=== PATIENT | female | born 1990 | race Caucasian/White ===

== ENCOUNTER → 2016-09-18 | Outpatient (REF) | payer OTHER ==
[~2016-09-18] MED LIST: PERC5TAB6 PO; VITAPRTA PO
== END ==
LOC: M LAB REF 14:43
PROVIDERS: ATTEND Advanced Practice Midwife
DX: B37.3 Candidiasis of vulva and vagina (principal)

== ENCOUNTER → 2016-11-17 | Outpatient (CLI) | payer OTHER ==
[2016-11-17 13:23] LABS: MEAN CORPUSCULAR HEMOGLOBIN 30.5 pg (27.0-33.0); MEAN CORPUSCULAR HGB CONC 32.1 g/dl (32.0-36.5); WHITE BLOOD COUNT 10.8 K/mm3 (4.0-10.0)
== END ==
LOC: M WUC 09:28
PROVIDERS: ATTEND Obstetrics & Gynecology
DX: Z36 Encounter for antenatal screening of mother (principal)

== ENCOUNTER → 2017-01-12 | Outpatient (REF) | payer OTHER ==
[~2017-01-12] MED LIST changes: +FERR325T3 PO
== END ==
LOC: M LAB REF 16:33
PROVIDERS: ATTEND Obstetrics & Gynecology
DX: Z36 Encounter for antenatal screening of mother (principal)

== ENCOUNTER 2017-01-21 15:52 | Inpatient (IN) | payer OTHER ==
[~2017-01-21] VITALS: Ht 154.9 cm; Wt 90.0 kg
[2017-01-21] VITALS (28 sets, daily range): BP systolic 89–149; BP diastolic 59–97
[~2017-01-21 15:52] MED LIST changes: -ACET50TA PO; -FERR325T3 PO; -IBUP-1114 PO
[2017-01-21] MEDS ORDERED: FERR325T3 PO (16:03)
[2017-01-21] MEDS ORDERED: LACTATED RINGER'S 1000 ML IV ONE (17:15)
--- NOTE | 2017-01-21 17:37 | HPEPDOC ---
Obstetrical History & Physical General Date of Admission Jan 21, 2017 at 16:52 History of Present Illness Patient is a 26 year old female who is a at 37.6 weeks gestation with an MADDIE of 02/05/17 based off her 1st trimester ultrasound and consistent with her LMP. She initiated care in her 1st trimester at [facility]. Her has been complicated with 1st and 2nd trimester vaginal bleeding. She presented to the office 2 days ago with complaints of itching on her hands and feet that got worse at night. No visual rash noted on exam. Labs obtained for cholestasis. Her liver enzymes were double and triple the normal limit. Bile acid is still pending at this time. She was sent over from the office for evaluation to rule out atypical preeclampsia, HELLP, and cholestasis. Patient reports decreased movement, but she is still getting 10 movements in 2 hours. Denies vaginal bleeding or leaking of fluid. When patient was placed on the EFM it was noted that the FHR was tachycardic 180-200 bpm. Chief Complaint: Contractions, term, Other (elevated liver enzymes: cholestasis ) Information Provided By: Patient Age: 26 : 4 Term: 1 Abortions: 2 Livin Care Care: Good Care Dating Final EDC: Feb 05, 2017 Final EDC by: 1st trimester (US) LMP: Jun 12, 2016 EGA at Admission: 37.6 Antepartum Course Height (inches): 61 Pre- weight (lbs.): 195 Admission Weight (lbs.): 206 Change in Weight (lbs.): 11 Past Medical History Past Obstetrical History #1: Past Obstetrical History: Multigravida Gestation: 38 Type of Delivery: Spontaneous Vaginal Del. (09/2012) Sex of : Male Complications: No (7 lbs. 11 oz. ) Past Obstetrical History #2: Gestation: 16 Type of Delivery: Spontaneous Vaginal Del. (Vaginal delivery: incompetent cervix ) Complications: Yes PACKING CHECKER History: Ectopic (2014), Other Past Medical History Medical History non contributory Surgical History: Other (salpingectomy from a ruptured ectopic) Family History Significant Family History: No pertinent family hx Social History Marital Status: Family situation: Spouse/partner home Psychosocial History: No pertinent psych hx * Smoker: non-smoker Alcohol: Denies Drugs: denies Abuse Violence Screening Have you been hit/kicked/slapp: No Have you been sexually assault: No Allergies Coded Allergies: No Known Allergies (Unverified , 06/10/15) Medications Scheduled Ferrous Sulfate (Ferrous Sulfate) 325 Mg Tab, 325 MG PO DAILY Multivit/Min/Pren/Fol Ac/Iron ( Rx) 1 Tab Tab, 1 TAB PO DAILY Physical Examination Physical Examination GENERAL: Alert and oriented times three. BREAST: . ABDOMEN: Gravid and non-tender to touch. FETUS: Is vertex (VTX) by sterile vaginal examination (SVE), fetus is vertex ( VTX) by Kt. HEART RATE: Regular rate and rhythm. LUNGS: Clear to auscultation (CTA). EXTREMITIES: No edema. No clonus. Deep tendon reflexes (DTRs) + 2. Laboratory Data [facility] Laboratory Tests 2 01/21/17 16:40: Item Value Date Time Sodium Level 137 MEQ/L 01/21/17 1507 Potassium Level 4.0 MEQ/L 01/21/17 1507 Chloride Level 104 MEQ/L 01/21/17 1507 Carbon Dioxide Level 21 MEQ/L 01/21/17 1507 Anion Gap 12 MEQ/L 01/21/17 1507 Blood Urea Nitrogen 7 MG/DL 01/21/17 1507 Creatinine 0.80 MG/DL 01/21/17 1507 Glomerular Filtration Rate > 60.0 01/21/17 1507 Fasting Glucose 113 MG/DL H 01/21/17 1507 Uric Acid 5.9 MG/DL 01/21/17 1507 Calcium Level 8.7 MG/DL 01/21/17 1507 Total Bilirubin 0.5 MG/DL 01/21/17 1507 Aspartate Amino Transf (AST/SGOT) 111 U/L H 01/21/17 1507 Alanine Aminotransferase (ALT/SGPT) 174 U/L H 01/21/17 1507 Alkaline Phosphatase 211 U/L H 01/21/17 1507 Total Protein 6.3 GM/DL L 01/21/17 1507 Albumin 2.5 GM/DL L 01/21/17 1507 Albumin/Globulin Ratio 0.66 L 01/21/17 1507 White Blood Count 7.6 K/mm3 01/21/17 1507 Red Blood Count 3.62 M/mm3 L 01/21/17 1507 Hemoglobin 11.7 g/dl L 01/21/17 1507 Hematocrit 35.8 % L 01/21/17 1507 Mean Corpuscular Volume 98.9 fl H 01/21/17 1507 Mean Corpuscular Hemoglobin 32.3 pg 01/21/17 1507 Mean Corpuscular Hemoglobin Concent 32.6 g/dl 01/21/17 1507 Red Cell Distribution Width 15.0 % H 01/21/17 1507 Platelet Count 313 k/mm3 01/21/17 1507 Urine Culture: No Growth Pertinent Laboratoy Data Blood Type: AB+ RBC Antibody Screen: Negative HIV: Negative Hepatitis B: Negative Rapid Plasma Reagin: Immune Rubella: Nonreactive Chlamydia/Gonorrhea: Negative Group B Streptococcus: Negative Quad Screen Test: Declined Cystic Fibrosis: Declined Glucose Tolerance Test: 135 Vaginal Examination Dilation: 4 cm Effacement: 40-50% (50%) Station: -2 Cervical Consistency: Soft Cervical Position: Middle Presentation: Cephalic presentation Position: Four quadrants Assessment Heart Rate (FHR): 170 Variability: Moderate Accelerations: Positive Decelerations: Variable Heart Patterns: Tachycardia Tocometer Contractions: Yes Frequency: irregular Strength: palpated as mild Multi-drug resistant Organism: No history of MDRO Assessment/Plan Assessment IUP at 37.6 weeks gestation in early labor tachycardia elevated liver enzymes; cannot r/o atypical preeclampsia vs. cholestasis Plan Admit to labor and delivery. Start IV, IV bolus per order, labs as ordered. Clear liquid diet. OOB as tolerated. Dr. Sen has evaluated patient in L&D and plan of care discussed. Reviewed elevated liver enzymes, which have increased in 1.5 days, and tachycardia. Augmentation via AROM and Pitocin reviewed with patient due to the worsening of symptoms and their potential effect on patient and fetus. Risks/ benefits/alternatives reviewed. Patient does desire to have her labor augmented. SAGE GONZALEZ CNM Jan 21, 2017 17:37 Martin Sen DO Jan 22, 2017 19:09
[2017-01-21] MEDS ORDERED: LR 1,000 ML IV SCH ×2 (17:52→18:00)
[2017-01-21] MEDS ORDERED: OXYTOCIN DRIP 30 UNITS in APPROPRIATE DILUENT 1 EA IV SCH ×2 (18:00→22:27)
[2017-01-21] MEDS ORDERED: LR 800 ML IV SCH (18:00)
[2017-01-21] MEDS ORDERED: FENTANYL 2MCG/ML ROPIVACAINE 0.2% IN 0.9% NACL 200ML IVBAG As Ordered ONE (19:53)
[2017-01-21] MEDS ORDERED: ePHEDrine SULFATE 25 MG/5 ML(5MG/ML) SYRINGE IV PRN (20:45)
[2017-01-21] MEDS ORDERED: EPIDURAL COMMENT XX SCH (20:45)
[2017-01-21] MEDS ORDERED: diphenhydrAMINE INJ 50MG/ML VIAL (J1200) IV PRN (20:45)
[2017-01-21] MEDS ORDERED: ONDANSETRON 4MG/2ML VIAL (J2405) IV PRN (20:45)
[2017-01-21] MEDS ORDERED: FENTANYL/ROPIVACAINE/NACL BAG 200 ML EPIDURAL SCH (20:45)
[2017-01-21] MEDS ORDERED: REFRIGERATOR IV KEYS XX PRN (20:45)
[2017-01-21] MEDS ORDERED: NALOXONE INJ 0.4 MG/1 ML VIAL (J2310) IV PRN (20:45)
[2017-01-21] MEDS ORDERED: EPIDURAL/PCA KEYS XX PRN (20:45)
[2017-01-21] MEDS ORDERED: LACTATED RINGER'S 1000 ML IV PRN (20:45)
[2017-01-21] MEDS ORDERED: DOCUSATE SODIUM 100 MG CAP PO PRN (22:30)
[2017-01-21] MEDS ORDERED: MEASLES,MUMPS,RUBELLA VACCINE INJ (MMR-II) (90707) SC SCH (22:30)
[2017-01-21] MEDS ORDERED: RHOGAM 300 MCG (1500 IU) INJ (J2790) IM SCH (22:30)
[2017-01-21] MEDS ORDERED: diphenhydrAMINE 25 MG CAP PO PRN (22:30)
[2017-01-21] MEDS ORDERED: METHYLERGONOVINE MALEATE 0.2 MG TAB PO PRN (22:30)
[2017-01-21] MEDS ORDERED: ACETAMINOPHEN 500 MG TAB PO PRN (22:30)
[2017-01-21] MEDS ORDERED: DIBUCAINE 1% OINTMENT 30GM TOP PRN (22:30)
[2017-01-21] MEDS ORDERED: ANUSOL HC CREAM 30GM TOP PRN (22:30)
--- NOTE | 2017-01-21 23:36 | DNPDOC ---
[facility] Delivery Note Delivery Note Patient is a 26 year old female who is now a at 37.6 wks gestation. Her has been complicated by 1st and 2nd trimester vaginal bleeding, elevated liver enzymes consistent with possible atypical preeclampsia vs.cholestasis, and tachycardia. Patient's labor was augmented with AROM and Pitocin. She obtained an epidural for pain management. She progressed to fully dilated at 2123. She pushed to a of a living female in the CRIS position with restitution to LOT at 2136. A nuchal cord was noted with delivery of the head. The anterior shoulder delivered with ease and the corpus followed quickly after. The baby was placed on the maternal abdomen active and crying. The cord was clamped x2 and cut by the FOB. A 3 vessel cord was noted. The placenta delivered spontaneously and intact at 2143 via Tavera mechanism. Uterine hemostasis was achieved by fundal massage and rapid infusion of IV Pitocin. The vagina and perineum were inspected and found to have a 2nd degree perineal laceration, which was repaired with a 3.[address]-1 to achieve approximation and hemostasis. EBL 200 cc. weight: 7 lbs 1 oz, 3214 grams. : 9/9. The mother will be bottle feeding the . Baby's name is Roxana Rahman. Mom and baby are both in stable condition. Delivery discussed with SAGE Srinivasan CNM Jan 21, 2017 23:36 Martin Sen DO Jan 22, 2017 19:21
[2017-01-22 00:10] VITALS: BP 114/76
[2017-01-22 05:44] VITALS: BP 128/76
[2017-01-22 07:11] LABS: MEAN CORPUSCULAR HEMOGLOBIN 31.7 pg (27.0-33.0); MEAN CORPUSCULAR VOLUME 96.1 fl (80.0-96.0); RED CELL DISTRIBUTION WIDTH 15.4 % (11.5-14.5); WHITE BLOOD COUNT 10.8 K/mm3 (4.0-10.0)
[2017-01-22 07:39] LABS: ALT/SGPT 138 U/L (12-78); AST/SGOT 96 U/L (15-37); BILIRUBIN,TOTAL 0.5 MG/DL (0.2-1.0); GLOMERULAR FILTRATION RATE > 60.0 (>60); URIC ACID 5.7 MG/DL (2.6-6.0)
[2017-01-22] MEDS ORDERED: PRENATAL VITAMIN TAB PO SCH (09:00)
[2017-01-22 18:00] VITALS: BP 128/74
[2017-01-22] MEDS: IBUPROFEN 800 MG TAB PO PRN (19:24)
[2017-01-23] MEDS: IBUPROFEN 800 MG TAB PO PRN (05:29)
[2017-01-23 05:30] VITALS: BP 113/66
[2017-01-23] MEDS ORDERED: ACET50TA PO (08:46)
[2017-01-23] MEDS ORDERED: IBUP-1114 PO (08:46)
[2017-01-23] MEDS ORDERED: PRENATAL VITAMINS CHEWABLE TABLET PO SCH (09:00)
[2017-01-23] MEDS ORDERED: ADACEL/BOOSTRIX VACCINE (DIPHTH/PERTUSS/ACELL/TETANUS)0.5ML SYR (90715) IM ONE (09:00)
[2017-01-23] MEDS ORDERED: ADACEL/BOOSTRIX VACCINE (DIPHTH/PERTUSS/ACELL/TETANUS)0.5ML SYR (90715) IM SCH (09:00)
== END 2017-01-23 10:51 | disposition home or self-care (01) | DRG 775 ==
LOC: M LDO 15:52 → M LDI 16:52 → M OBS 01-22 00:01
PROVIDERS: ADMIT Advanced Practice Midwife; ATTEND Advanced Practice Midwife
PROC: 10E0XZZ Delivery of Products of Conception, External Approach (ICD-10-PCS; principal; 2017-01-21)
PROC: 0KQM0ZZ Repair Perineum Muscle, Open Approach (ICD-10-PCS; 2017-01-21)
PROC: 10907ZC Drainage of Amniotic Fluid, Therapeutic from Products of Conception, Via Natural or Artificial Opening (ICD-10-PCS; 2017-01-21)
PROC: 3E033VJ Introduction of Other Hormone into Peripheral Vein, Percutaneous Approach (ICD-10-PCS; 2017-01-21)
DX: O36.8130 Decreased fetal movements, third trimester, not applicable or unspecified (principal); K83.1 Obstruction of bile duct; O26.62 Liver and biliary tract disorders in childbirth; Z37.0 Single live birth; Z3A.37 37 weeks gestation of pregnancy; Z79.899 Other long term (current) drug therapy; O76 Abnormality in fetal heart rate and rhythm complicating labor and delivery; R74.8 Abnormal levels of other serum enzymes; O69.81X0 Labor and delivery complicated by cord around neck, without compression, not applicable or unspecified; O70.1 Second degree perineal laceration during delivery

== ENCOUNTER → 2017-01-21 | Outpatient (REF) | payer OTHER ==
[~2017-01-21] MED LIST changes: +ACET50TA PO; +IBUP-1114 PO
[2017-01-21 17:03] LABS: MEAN CORPUSCULAR HEMOGLOBIN 32.3 pg (27.0-33.0); MEAN CORPUSCULAR HGB CONC 32.6 g/dl (32.0-36.5); MEAN CORPUSCULAR VOLUME 98.9 fl (80.0-96.0); WHITE BLOOD COUNT 7.6 K/mm3 (4.0-10.0)
[2017-01-21 17:30] LABS: ALBUMIN 2.5 GM/DL (3.2-5.2); ALBUMIN/GLOBULIN RATIO 0.66 (1.00-1.93); ALKALINE PHOSPHATASE 211 U/L (45-117); ALT/SGPT 174 U/L (12-78); ANION GAP 12 MEQ/L (8-16); AST/SGOT 111 U/L (15-37); BILIRUBIN,TOTAL 0.5 MG/DL (0.2-1.0); BLOOD UREA NITROGEN 7 MG/DL (7-18); CALCIUM LEVEL 8.7 MG/DL (8.5-10.1); CARBON DIOXIDE LEVEL 21 MEQ/L (21-32); CHLORIDE LEVEL 104 MEQ/L (98-107); GLOMERULAR FILTRATION RATE > 60.0 (>60); GLUCOSE, FASTING 113 MG/DL (70-105); SODIUM LEVEL 137 MEQ/L (136-145); TOTAL PROTEIN 6.3 GM/DL (6.4-8.2); URIC ACID 5.9 MG/DL (2.6-6.0)
== END ==
LOC: M LAB REF 16:34
PROVIDERS: ATTEND Advanced Practice Midwife
DX: R94.5 Abnormal results of liver function studies (principal)

== ENCOUNTER → 2019-01-11 | Outpatient (REF) | payer OTHER ==
[~2019-01-11] MED LIST changes: +FERR325T3 PO; +IBUP-1114 PO; +MAPA500T2 PO; +PERC5TAB12 PO; -PERC5TAB6 PO
== END ==
LOC: M SFHCLERA 14:30
PROVIDERS: ATTEND Nurse Practitioner Family
DX: J02.9 Acute pharyngitis, unspecified (principal)

== ENCOUNTER → 2019-01-11 | Outpatient (CLI) | payer OTHER ==
--- NOTE | 2019-01-11 14:54 | REP ---
Chest two views HISTORY: Cough Comparison: None The lungs are clear. The heart is normal in size. The pulmonary vasculature is normal in appearance. The bony structure is intact. IMPRESSION: No acute disease. Electronically Signed by Mike Hernandez MD 01/11/2019 02:46 P
== END ==
LOC: M LRY 14:22
PROVIDERS: ATTEND Nurse Practitioner Family
DX: R05 Cough (principal)

== ENCOUNTER → 2020-09-16 | Outpatient (CLI) | payer BC ==
--- NOTE | 2020-09-17 09:04 | REP ---
INDICATION: PAIN. COMPARISON: None. TECHNIQUE: Four views of the left foot. FINDINGS: Four views of the left foot demonstrate normal bones, joints, and soft tissues. No fracture or subluxation is seen. No opaque foreign body noted. IMPRESSION: Negative left foot series. <Electronically signed by Russell House > 09/17/20 0956
== END ==
LOC: M WUC 15:47
PROVIDERS: ATTEND Physician Assistant
DX: M25.572 Pain in left ankle and joints of left foot (principal)